=== PATIENT | female | born 1965 | race African-American/Black ===

== ENCOUNTER 2019-12-31 08:09 | Outpatient (CLI) | payer BC, SELFPAY ==
--- NOTE | ~2019-12-31 | MM_ITS ---
EXAMINATION: MM screening [facility] BI w henry HISTORY: Screening mammogram TECHNIQUE: Craniocaudal and mediolateral oblique 3-D tomosynthesis images were obtained and synthetic 2-D images were generated. CAD analysis was submitted and interpreted. COMPARISON: 08/29/2018, 08/08/2018, 06/24/2017, 06/18/2016 BREAST PARENCHYMAL COMPOSITION: There are scattered areas of fibroglandular density. FINDINGS: There is no evidence of suspicious mass, calcification, or architectural distortion to sugg est malignancy in either breast. There has been no suspicious interval change. IMPRESSION: 1. No mammographic evidence of malignancy. 2. Recommend routine screening mammography in one year. BI-RADS Category 1: Negative Reviewed, dictated and finalized at location A.
== END 2019-12-31 08:10 | disposition home or self-care (01) ==
LOC: ANHIMG 08:12
PROVIDERS: PCP Internal Medicine; Visit Provider Internal Medicine
DX: Z12.31 Encounter for screening mammogram for malignant neoplasm of breast (principal)
CPT/HCPCS: 77063; 77067

== ENCOUNTER 2021-01-07 15:45 | Outpatient (CLI) | payer BC, SELFPAY ==
--- NOTE | ~2021-01-07 | MM_ITS ---
EXAMINATION: MM screening [facility] BI w henry HISTORY: Screening TECHNIQUE: Craniocaudal and mediolateral oblique 3-D tomosynthesis images were obtained and synthetic 2-D images were generated. CAD analysis was submitted and interpreted. COMPARISON: Comparison to multiple prior studies sequentially, with oldest reviewed study dated 06/16. BREAST PARENCHYMAL COMPOSITION: There are scattered areas of fibroglandular density. FINDINGS: There is no evidence of suspicious mass, calcification, or architectural distortion to sugg est malignancy in either breast. There has been no suspicious interval change. IMPRESSION: 1. No mammographic evidence of malignancy. 2. Recommend routine screening mammography in one year. BI-RADS Category 1: Negative Reviewed, dictated and finalized at location A.
== END 2021-01-07 15:46 | disposition home or self-care (01) ==
LOC: ANHIMG 15:48
PROVIDERS: PCP Internal Medicine; Visit Provider Internal Medicine
DX: Z12.31 Encounter for screening mammogram for malignant neoplasm of breast (principal)
CPT/HCPCS: 77063; 77067

== ENCOUNTER 2021-04-20 14:27 | Outpatient (CLI) | payer BC, SELFPAY ==
--- NOTE | ~2021-04-20 | CT_ITS ---
EXAMINATION: CT abdomen pelvis w con DATE: 04/20/2021 14:56 INDICATION: Colon mass. TECHNIQUE: Computed tomography (CT) of the abdomen and pelvis was performed with 100 mL Omnipaque 350 intravenous contrast. Automated exposure control and iterative reconstruction technique were employe d. The dose-length product was 860.39 mGy-cm. COMPARISON: None. FINDINGS: The visualized portions of the lung bases demonstrate minimal atelectasis on the left. No p leural effusion. The heart size is normal. No pericardial effusion. The liver, gallbladder, spleen, p ancreas, adrenal glands, and kidneys are normal. The appendix is normal. There are no dilated loops o f bowel. There are no pathologically enlarged lymph nodes. There is no free intraperitoneal fluid. Th ere is moderate lower lumbar spondylosis. IMPRESSION: 1. No evidence of malignancy. Reviewed, dictated and finalized at location A.
== END 2021-04-20 14:28 | disposition home or self-care (01) ==
PROVIDERS: PCP Internal Medicine; Visit Provider Internal Medicine Gastroenterology
DX: K63.89 Other specified diseases of intestine (principal); Z12.11 Encounter for screening for malignant neoplasm of colon
CPT/HCPCS: 74177; Q9967

== ENCOUNTER 2021-10-28 15:58 | Outpatient (CLI) | payer BC, SELFPAY ==
--- NOTE | ~2021-10-28 | US_ITS ---
EXAMINATION: US venous doppler [facility] DATE: 10/28/2021 16:40 INDICATION: Left lower limb pain. TECHNIQUE: Grayscale ultrasound images without and with compression and Doppler ultrasound images of the left lower extremity veins were obtained. COMPARISON: None. FINDINGS: The visualized portions of left common femoral vein, profunda (deep) femoral vein, femoral vein, popl iteal vein, peroneal veins, posterior tibial veins, and greater saphenous vein outflow are patent. IMPRESSION: 1. No deep venous thrombosis. Reviewed, dictated and finalized at location A. CUSTOMIZE PAINTER
== END 2021-10-28 15:59 | disposition home or self-care (01) ==
LOC: ANHIMG 16:08
PROVIDERS: PCP Internal Medicine; Visit Provider Internal Medicine
DX: M79.605 Pain in left leg (principal)
CPT/HCPCS: 93971

== ENCOUNTER 2021-12-08 08:48 | Outpatient (CLI) | payer BC, SELFPAY ==
--- NOTE | 2021-12-08 11:30 | NEURO_ITS ---
Impression: # Complains of numbness in upper and lower extremities. # Bilateral ulnar neuropathy across the elbows. # Left peroneal distal neuropathy. # Left lower extremity peroneal and tibial amplitude drop could be related to sciatic nerve compressive neuropathy. # Clinical correlation recommended; Higher involvement needs to be ruled out. Nerve Conduction Studies Anti Sensory Summary Table Stim Site NR Peak (ms) P-T Amp (?V) Site1 Site2 Delta-P (ms) Dist (cm) Go (m/s) Left Median Anti Sensory (2-3nd Digit) Wrist 2.6 58.8 Wrist 2-3nd Digit 2.6 14.0 54 Wrist 2.6 67.9 Wrist 2-3nd Digit 2.6 14.0 54 Right Median Anti Sensory (2-3nd Digit) Wrist 2.7 84.6 Wrist 2-3nd Digit 2.7 14.0 52 Wrist 2.5 88.7 Wrist 2-3nd Digit 2.7 14.0 52 Left Radial Anti Sensory (Base 1st Digit) Wrist 1.9 30.1 Wrist Base 1st Digit 1.9 0.0 Right Radial Anti Sensory (Base 1st Digit) Wrist 2.0 19.2 Wrist Base 1st Digit 2.0 0.0 Left Sup Fibular Anti Sensory (Ant Lat Mall) 14 cm 3.5 4.9 14 cm Ant Lat Mall 3.5 16.0 46 Right Sup Fibular Anti Sensory (Ant Lat Mall) 14 cm 3.5 21.8 14 cm Ant Lat Mall 3.5 16.0 46 Left Sural Anti Sensory (Lat Mall) Calf 4.0 22.6 Calf Lat Mall 4.0 16.0 40 Right Sural Anti Sensory (Lat Mall) Calf 3.8 16.7 Calf Lat Mall 3.8 16.0 42 Left Ulnar Anti Sensory (5th Digit) Wrist 2.5 69.7 Wrist 5th Digit 2.5 14.0 56 Right Ulnar Anti Sensory (5th Digit) Wrist 2.3 42.4 Wrist 5th Digit 2.3 14.0 61 Motor Summary Table Stim Site NR Onset (ms) O-P Amp (mV) Site1 Site2 Delta-0 (ms) Dist (cm) Go (m/s) Left Median Motor (Abd Poll Brev) Wrist 2.9 5.8 Elbow Wrist 4.1 26.0 63 Elbow 7.0 5.6 Right Median Motor (Abd Poll Brev) Wrist 2.7 8.9 Elbow Wrist 4.3 25.0 58 Elbow 7.0 6.9 Left Peroneal Motor (Vastus Med) Ankle 6.5 1.3 Popit Ankle 8.3 38.0 46 Popit 14.8 1.1 Right Peroneal Motor (Vastus Med) Ankle 5.2 7.6 Popit Ankle 7.5 37.0 49 Popit 12.7 7.3 Left Tibial Motor (Abd Tan Brev) Ankle 5.1 0.8 Knee Ankle 7.9 41.0 52 Knee 13.0 0.8 Right Tibial Motor (Abd Tan Brev) Ankle 4.7 10.8 Knee Ankle 9.4 41.0 44 Knee 14.1 9.1 Left Ulnar Motor (Abd Dig Minimi) Wrist 2.3 7.5 A Elbow Wrist 6.6 30.0 45 A Elbow 8.9 6.3 B Elbow Wrist 4.0 24.0 60 B Elbow 6.3 6.6 Right Ulnar Motor (Abd Dig Minimi) Wrist 2.3 7.1 A Elbow Wrist 6.4 29.0 45 A Elbow 8.7 5.9 B Elbow Wrist 4.3 20.0 47 B Elbow 6.6 3.0 F Wave Studies NR F-Lat (ms) L-R F-Lat (ms) Left Median (Mrkrs) (Abd Poll Brev) 26.96 0.88 Right Median (Mrkrs) (Abd Poll Brev) 26.08 0.88 Left Peroneal (Mrkrs) (EDB) 55.15 2.51 Right Peroneal (Mrkrs) (EDB) 52.63 2.51 Left Tibial (Mrkrs) (Abd Hallucis) 54.69 1.83 Right Tibial (Mrkrs) (Abd Hallucis) 52.85 1.83 Left Ulnar (Mrkrs) (Abd Dig Min) 27.75 0.64 Right Ulnar (Mrkrs) (Abd Dig Min) 27.11 0.64 EMG Side Muscle Nerve Root Ins Act Fibs Amp Dur Recrt Comment Right 1stDorInt Ulnar C8-T1 Nml Nml Nml Nml Nml Right Ext Indicis Radial (Post Int) C7-8 Nml Nml Nml Nml Nml Right Ext Digitorum Radial (Post Int) C7-8 Nml Nml Nml Nml Nml Right Br
== END 2021-12-08 08:49 | disposition home or self-care (01) ==
PROVIDERS: PCP Internal Medicine; Visit Provider Internal Medicine
DX: R20.2 Paresthesia of skin (principal); G56.23 Lesion of ulnar nerve, bilateral upper limbs
CPT/HCPCS: 95886; 95913

== ENCOUNTER 2022-01-12 15:41 | Outpatient (CLI) | payer BC, SELFPAY ==
--- NOTE | ~2022-01-12 | MR_ITS ---
EXAMINATION: MR lumbar spine wo con DATE: 01/12/2022 16:25 INDICATION: Lumbar radiculopathy TECHNIQUE: Magnetic resonance imaging (MRI) of the lumbar spine was attempted. [address] installer localize r images were obtained. At this point the examination was halted FSE patient stated that her back was heating up . FINDINGS/IMPRESSION: Incomplete study. Review of localizer images demonstrates prominent lower lumbar facet osteoarthritis . Resolution is insufficient for diagnostic assessment of the lumbar spine. Limited evaluation of the remainder of the abdomen and pelvis is otherwise unremarkable. Reviewed, dictated and finalized at location A.
== END 2022-01-12 15:42 | disposition home or self-care (01) ==
LOC: ANHIMG 15:45
PROVIDERS: PCP Internal Medicine; Visit Provider Internal Medicine
DX: M54.16 Radiculopathy, lumbar region (principal)
CPT/HCPCS: 72148

== ENCOUNTER 2022-05-21 14:34 | Outpatient (CLI) | payer BC, SELFPAY ==
--- NOTE | ~2022-05-21 | MM_ITS ---
EXAMINATION: MM screening [facility] BI w henry HISTORY: Screening mammogram TECHNIQUE: Craniocaudal and mediolateral oblique 3-D tomosynthesis images were obtained and synthetic 2-D images were generated. CAD analysis was submitted and interpreted. COMPARISON: 01/07/2021, 12/31/2019 bilateral digital screening mammogram 08/29/2018 diagnostic left mammogram and limited left breast ultrasound 08/08/2018 bilateral screening mammogram BREAST PARENCHYMAL COMPOSITION: There are scattered areas of fibroglandular density. FINDINGS: There are scattered bilateral benign calcifications. There is no evidence of suspicious ma ss, calcification, or architectural distortion to suggest malignancy in either breast. There has been no suspicious interval change. IMPRESSION: 1. No mammographic evidence of malignancy. 2. Recommend routine screening mammography in one year. BI-RADS Category 1: Negative Reviewed, dictated and finalized at location B.
== END 2022-05-21 14:35 | disposition home or self-care (01) ==
LOC: ANHIMG 14:39
PROVIDERS: PCP Internal Medicine; Visit Provider Internal Medicine
DX: Z12.31 Encounter for screening mammogram for malignant neoplasm of breast (principal)
CPT/HCPCS: 77063; 77067

== ENCOUNTER 2023-07-26 09:01 | Outpatient (CLI) | payer BC, SELFPAY ==
--- NOTE | ~2023-07-26 | MM_ITS ---
EXAMINATION: MM screening [facility] BI w henry HISTORY: Screening mammogram TECHNIQUE: Craniocaudal and mediolateral oblique 3-D tomosynthesis images were obtained and synthetic 2-D images were generated. CAD analysis was submitted and interpreted. COMPARISON: 05/21/2022, 01/07/2021, 12/31/2019 BREAST PARENCHYMAL COMPOSITION:The breasts are almost entirely fatty FINDINGS: No suspicious mass, calcification, or architectural distortion are identified in either rebekah ast to suggest malignancy. There has been no suspicious interval change. IMPRESSION: No mammographic evidence of malignancy. Recommend routine screening mammography in one year. BI-RADS Category 1: Negative Reviewed, dictated and finalized at location .
== END 2023-07-26 09:02 | disposition home or self-care (01) ==
PROVIDERS: PCP Family Medicine; Visit Provider Family Medicine
DX: Z12.31 Encounter for screening mammogram for malignant neoplasm of breast (principal)
CPT/HCPCS: 77063; 77067

== ENCOUNTER 2023-11-29 08:25 | Outpatient (CLI) | payer BC, SELFPAY ==
--- NOTE | ~2023-11-29 | XR_ITS ---
EXAMINATION: XR hip BI 2V w AP pelvis DATE: 11/29/2023 08:42 INDICATION: Left hip pain. TECHNIQUE: An anteroposterior view of the pelvis and 2 views of each hip were obtained. COMPARISON: None. FINDINGS: Bone alignment is normal. No fracture. There is mild osteoarthritis of the hips. IMPRESSION: 1. Mild osteoarthritis of the hips. Reviewed, dictated and finalized at location A. ITY CONTROL TECHNICIAN
== END 2023-11-29 08:26 | disposition home or self-care (01) ==
PROVIDERS: PCP Family Medicine; Visit Provider Family Medicine
DX: M16.0 Bilateral primary osteoarthritis of hip (principal)
CPT/HCPCS: 73521

== ENCOUNTER 2024-08-15 14:23 | Outpatient (CLI) | payer BC, SELFPAY ==
--- NOTE | ~2024-08-15 | MM_ITS ---
EXAMINATION: MM screening [facility] BI w henry HISTORY: Screening TECHNIQUE: Craniocaudal and mediolateral oblique 3-D tomosynthesis images were obtained and synthetic 2-D images were generated. CAD analysis was submitted and interpreted. COMPARISON: Comparison to multiple prior studies sequentially, with oldest reviewed study dated 07/24. BREAST PARENCHYMAL COMPOSITION: Not dense: There are scattered areas of fibroglandular density. FINDINGS: There is no evidence of suspicious mass, calcification, or architectural distortion to sugg est malignancy in either breast. There has been no suspicious interval change. IMPRESSION: 1. No mammographic evidence of malignancy. 2. Recommend routine screening mammography in one year. BI-RADS Category 1: Negative Reviewed, dictated and finalized at location B.
== END 2024-08-15 14:24 | disposition home or self-care (01) ==
LOC: ANHIMG 14:24
PROVIDERS: PCP Family Medicine; Visit Provider Family Medicine
DX: Z12.31 Encounter for screening mammogram for malignant neoplasm of breast (principal)
CPT/HCPCS: 77063; 77067

== ENCOUNTER 2025-05-15 08:15 | Outpatient (CLI) | payer BC, SELFPAY ==
--- NOTE | ~2025-05-15 | XR_ITS ---
EXAM/ PROCEDURE: XR hip RT 2V w AP pelvis - 05/15/2025 8:20 CDT HISTORY: 59 years old Female with M25.559 - Pain in unspecified hip COMPARISON: None available TECHNIQUE: Three view(s) FINDINGS/ IMPRESSION: There are no fractures or dislocations.Joint space narrowing, subchondral sclerosis, subchondral cyst formation and osteophyte formation, compatible with mild osteoarthritis. Reviewed, dictated and finalized at location A.
--- OUTSIDE RECORDS SUMMARY | 2025-05-15 08:19 | XMS_ITS | Referral Summary ---
Author Organization [facility] Address [address] [place] [address] Care Team Providers Care On Site Nurse Name Role Phone Lyle Herrera MD Unavailable [phone] Cande Green MD Unavailable [phone] Kenton Talavera DO Primary Care Provider [phone] Demetrius Heredia MD Unavailable Allergies No known active allergies Medications metFORMIN XR (GLUCOPHAGE XR) 500 mg 24 hr tabletIndicatio ns:regulate blood sugar levels Take 500 mg by mouth 2 (two) times a day 04/29/2021 Active progesterone (PROMETRIUM) 200 mg capsule Take 200 mg by mouth nightly 03/18/2021 Active multivitamin capsuleIndicati ons:Vitamin Deficiency Prevention Take 1 capsule by mouth 2 (two) times a day Active cholecalciferol (VITAMIN D-3) 5,000 unit capsuleIndicati ons:Vitamin D Deficiency Take 5,000 Units by mouth every morning Active calcium carbonate-vitam in D3 500 mg(1,250mg) -400 unit chewable tablet Take 1 tablet by mouth every morning Active magnesium gluconate 200 mg tabletIndicatio ns:hypomagnesem ia,bowels Take 200 mg by mouth every morning Active omega-3 fatty acids-fish oil 300-1,000 mg capsuleIndicati ons:supplement Take 2 g by mouth 2 (two) times a day Active coenzyme Q10 100 mg capsuleIndicati ons:supplement Take 200 mg by mouth every morning Active turmeric root extract 500 mg capsuleIndicati ons:supplement Take 1 capsule by mouth every morning Active B infantis/B ani/B fish/B bifid (PROBIOTIC 4X ORAL) Take by mouth daily Active Active Problems Problem Noted Date Diagnosed Date History of colon polyps 07/02/2021 Colon polyp 05/06/2021 Overview (05/06/2021): Added automatically from request for surgery [id number] Adenomatous polyp of descending colon 04/30/2021 Resolved Problems Problem Noted Date Diagnosed Date Resolved Date Ileus 06/09/2021 06/15/2021 Social History Tobacco Use Types Packs/Day Years Used Date Smoking Tobacco: Never Smokeless Tobacco: Never AUDIT-C Answer Date Recorded Q1: How often do you have a drink containing alc ohol? 2-3 times a week 06/05/2021 Q2: How many drinks containi ng alcohol do you have on a typical day when you are drinking? 1 or 2 06/05/2021 Q3: How often do you have si x or more drinks on one occasion? 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 Gender Identity Female 05/25/2021 9:25 AM CDT Sexual Orientation Straight 05/25/2021 9: 25 AM CDT Last Filed Vital Signs Vital Sign Reading Time Taken Comments Blood Pressure 151/84 07/02/2021 2:45 PM CDT Pulse 88 07/02/2021 2:45 PM CDT Temperature 36.6 C (97.8 F) 07/02/2021 2:45 PM CDT Respiratory Rate 17 06/15/2021 7:49 AM CDT Oxygen Saturation 98% 07/02/2021 2:45 PM CDT Inhaled Oxygen Concentration - - Weight 85.3 kg (188 lb) 07/02/2021 2:45 PM CDT Height 165.1 cm (5' 5) 07/02/2021 2:45 PM CDT Body Mass Index 31.28 07/02/2021 2:45 PM CDT Plan of Treatment Not on file Procedures Procedure Name Priority Date/Time Associated Diagnosis Comments COLONOSCOPY 06/04/2021 11:04 AM CDT from Last 3 Months or Most Recently Relevant to Health Maintenance Results * COLONOSCOPY (06/04/2021 11:04 AM CDT) Anatomical Region Laterality Modality Other Narrative Procedure Note Demetrius Heredia MD - 06/04/2021 11:04 AM CDT [facility] Patient Name: Annia Ramirez Procedure Date: 06/04/2021 11:04 AM Date of : 1965 Admit Type: Outpatient Age: 55 Gender: Female Attending MD: Demetrius Heredia M.D. Room: [facility] ENDOSCOPY ROOM 02 Note Status: Finalized Procedure: Colonoscopy Indications: Therapeutic procedure for colon polyps Referring MD: Providers: Demetrius Heredia M.D. Medicines: Propofol per Anesthesia Complications: No immediate complications. Estimated blood loss: Minimal. Estimated Blood Loss: Estimated blood loss: none. Procedure: Pre-Anesthesia Assessment: - Immediately prior to administration ofmedications, the patient was re-assessed for adequacy to receive sedatives. - Sedation was administered by an anesthesia professional. General anesthesia was attained. - The heart rate, respiratory rate, oxygen saturations, blood pressure, adequacy of pulmonary ventilation, and response to care were monitored throughout the procedure. - The physical status of the patient wasre-assessed after the procedure. The benefits, risks and alternatives of theprocedure and sedation were discussed and informed consentwas obtained. All questions were answered. Please referto the signed informed consent document in the medical record. The scope was passed under direct vision.The [id number] Endoscsope was introduced through the anus and advanced to the the cecum, identifiedby appendiceal orifice and ileocecal valve. The colonoscopy was performed with ease. The patient tolerated the procedure well. The quality of thebowel preparation was excellent. The quality of the bowel preparation was evaluated using the BBPS (BostonBowel Preparation Scale) with scores of: Right Colon = 3, Transverse Colon = 3 and Left Colon = 3 (entiremucosa seen well with no residual staining, smallfragments of stool or opaque liquid). The total BBPS score equals 9. The bowel preparation used was SUPREP.Bowel prep was administered using a split dose. Findings: A 50 mm polypoid lesion was found in the mid transverse colon. The lesion was polypoid and umbilicated. No bleeding was present. Impression: - Rule out malignancy, polypoid lesion in the mid transverse colon. - No specimens collected. Recommendation: -- Proceed with surgical resection as planned. - Repeat colonoscopy in 1 year for surveillance. Electronically signed by Dr.Matthew Giovanna M.D. Demetrius Heredia M.D. 06/04/2021 11:39:11 AM . Number of Addenda: 0 Note Initiated On: 06/04/2021 11:04 AM Recognized by the [employer] for promoting quality in endoscopy Demetrius Heredia MD ENDOSCOPY PROCEDURES Final R esult from Last 3 Months or Most Recently Relevant to Health Maintenance Insurance BLUE ACCESS OOS BLUE ACCESS OOS Advance Directives For more information, please contact: [phone] * Full Code (Latest Code Status on File) Date Activated Date Inactivated Comments 06/05/2021 11:04 AM 06/07/2021 11:24 PM * Full Code Date Activated Date Inactivated Comments 06/04/2021 10:06 AM 06/04/2021 4:00 PM Care Teams On Site Nurse Relationship Specialty Start Date End Date Kenton Talavera DO [address] [address] PCP - General Internal Medicine 04/15/21 Lyle Herrera MD [address] [place] [address] Referring Physician Gastroenterology 04/15/21 Cande Green MD [address] [facility] [address] [facility] [address] [place] [address] Referring Physician Obstetrics and Gynecology 04/15/21 Demetrius Heredia MD [id number] [place] [address] Surgeon Colon and Rectal Surgery 05/06/21
--- OUTSIDE RECORDS SUMMARY | 2025-05-15 08:19 | XMS_ITS | Clinical Summary ---
Author Organization [facility] Address [address] [place] [address] Care Team Providers Care Track Layer Name Role Phone Lyle Herrera MD Unavailable [phone] Cande Green MD Unavailable [phone] Kenton Talavera DO Primary Care Provider [phone] Demetrius Heredia MD Unavailable [phone] Allergies No known active allergies Medications metFORMIN [...] (05/06/2021): Added automatically from request for surgery [id number] Adenomatous polyp of descending colon 04/30/2021 Resolved Problems Problem Noted Date Diagnosed Date Resolved Date Ileus 06/09/2021 06/15/2021 Surgical History Surgery Date Site/Laterality Comments HYSTERECTOMY 10/24/1997 - 10/23/1998 TUBAL LIGATION HYSTERECTOMY EPIDURAL BLOCK INJECTION COLON SURGERY 06/05/2021 Laparoscopic-assisted right colectomy. 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 Gender Identity Female 05/25/2021 9:25 AM CDT Sexual Orientation Straight 05/25/2021 9: 25 AM CDT Obstetrics History Last Filed Vital Signs Vital Sign Reading [...] 07/02/2021 2:45 PM CDT Plan of Treatment Health Maintenance Due Date Last Done Comments Breast Cancer Screening-Mammogram 1965 Depression Screening 1965 Hepatitis C Screening 1965 DTaP/Tdap/Td Vaccine (1 - Tdap) 12/26/1978 Hepatitis B Screening 12/26/1985 Regular Well Visit/Exam 18-64 12/26/1985 Zoster Vaccine (1 of 2) 12/26/2017 Influenza Vaccine (Season Ended) 2025 Colon Cancer Screening-Colonoscopy 06/04/20312020 Pneumococcal vaccine <65 Aged Out No longer eligible based on patient's age to complete this topic Procedures Procedure Name Priority Date/Time Associated Diagnosis Comments COLONOSCOPY 06/04/2021 11:04 AM CDT from Last 3 Months or Most Recently Relevant to Health Maintenance Results * COLONOSCOPY (06/04/2021 11:04 AM CDT) Anatomical Region Laterality Modality Other Narrative Procedure Note Demetrius Heredia MD - 06/04/2021 11:04 AM CDT [facility] Patient Name: Annia Ramirez Procedure Date: 06/04/2021 11:04 AM Date of : 1965 Admit Type: Outpatient Age: 55 Gender: Female Attending MD: Demetrius Heredia M.D. Room: [facility] ENDOSCOPY ROOM 02 Note Status: Finalized Procedure: [...] The scope was passed under direct vision.The [id number] Endoscsope was introduced through the anus and [...] On: 06/04/2021 11:04 AM Recognized by the [employer] for promoting quality in endoscopy Demetrius Heredia MD ENDOSCOPY PROCEDURES Final R esult from Last 3 Months or Most Recently Relevant to Health Maintenance Insurance [employer] OOS Advance Directives For more information, please contact: [phone] * Full Code (Latest Code Status on File) Date Activated Date Inactivated Comments 06/05/2021 11:04 AM 06/07/2021 11:24 PM * Full Code Date Activated Date Inactivated Comments 06/04/2021 10:06 AM 06/04/2021 4:00 PM Care Teams Track Layer Relationship Specialty Start Date End Date Kenton Talavera DO [address] [place] [address] PCP - General Internal Medicine 04/15/21 Lyle Herrera MD [address] [place] [address] Referring Physician Gastroenterology 04/15/21 Cande Green MD [address] [facility] [address] [place] [address] Referring Physician Obstetrics and Gynecology 04/15/21 Demetrius Heredia MD [id number] [place] [address] Surgeon Colon and Rectal Surgery 05/06/21
--- OUTSIDE RECORDS SUMMARY | 2025-05-15 08:19 | XMS_ITS | Clinical Summary ---
Author Organization [facility] [employer] Address [address] [place] [address] Care Team Providers Care Publicity Agent Name Role Phone Rodney Allen MD Primary Care Provider [phone] Source Comments [facility] [employer],non-owned Affiliates and Associated Physician Practices is amultiple site organization consisting of ambulatory clinics and hospital sitesin [place], [place], [place] and [place]. This disclosure is being madepursuant to the Care Everywhere program and may not contain all information available regarding this patient. Last updated 18.[facility] [employer] Allergies No known active allergies Medications * Be aware that medications may not be up to date on this document. Alwaysverify current medications with the patient. Turmeric Curcumin 500 MG Take 1 capsule by mouth once daily Active Progesterone 200 MG capsule Take 1 capsule by mouth once daily 06/11/2021 Active fish oil/omega-3 fatty acids (PROMEGA;CARDI- OMEGA 3) 1000 MG capsule Take 2 g by mouth 2 times daily Active multivitamins (ONE A DAY) capsule Take 1 capsule by mouth 2 times daily Active metFORMIN ER 24hr (GLUCOPHAGE XR) 500 MG tablet Take 1 tablet by mouth 2 times daily 08/07/2021 Active Magnesium 200 MG TABS Take 200 mg by mouth once daily Active coenzyme Q10 100 MG capsule Take 200 mg by mouth once daily Active vitamin D3 (CHOLECALCIFERO L) 125 MCG (5000 UT) capsule Take 5,000 Units by mouth once daily Active Calcium Carb-Cholecalci ferol 500-400 MG-UNIT Take 1 tablet by mouth once daily Active Probiotic Product (4X PROBIOTIC PO) Take 1 Each by mouth once daily Active OtherIndication s:Vital Reds Take 1 Scoop by mouth once daily Reasons: Vital Reds Active Methylsulfonylm ethane (MSM) POWD Take 3 g by mouth once daily Active Social History Tobacco Use Types Packs/Day Years Used Date Smoking Tobacco: Never Smokeless Tobacco: Never Comments Unknown Sex and Gender Information Value Date Recorded Sex Assigned at Not on file Legal Sex Female 3:30 PM CDT Gender Identity Not on file Sexual Orientation Not on file Last Filed Vital Signs Vital Sign Reading Time Taken Comments Blood Pressure 140/82 09/04/2021 12:37 PM RASPER MACHINE OPERATOR Pulse 68 09/04/2021 12:37 PM RASPER MACHINE OPERATOR Temperature 36.9 C (98.4 F) 09/04/2021 12:37 PM RASPER MACHINE OPERATOR Respiratory Rate - - Oxygen Saturation - - Inhaled Oxygen Concentration - - Weight 86.6 kg (191 lb) 09/04/2021 12:37 PM RASPER MACHINE OPERATOR Height 165.1 cm (5' 5) 09/04/2021 12:37 PM RASPER MACHINE OPERATOR Body Mass Index 31.78 09/04/2021 12:37 PM RASPER MACHINE OPERATOR Plan of Treatment Health Maintenance Due Date Last Done Comments COLOGUARD (AGES 45-75) - COL ON CA SCREENING 1967 CT COLONOGRAPHY - COLON CA SCREENING 1965 FIT - COLON CA SCREENING 1965 FLEX SIG - COLON CA SCREENING 1965 LIPID TESTING 1965 MAMMOGRAM 1965 HIV SCREENING 12/26/1982 HEPATITIS C SCREENING 12/22/1985 DTAP/TDAP/TD VACCINES (1 - Tdap) 12/26/1986 HEPATITIS B VACCINE (1 of 3 - 19+ 3-dose series) 12/26/1986 PNEUMOCOCCAL VACCINE 50+ (1 of 1 - PCV) 12/26/2017 ZOSTER VACCINE (1 of 2) 12/26/2017 SCREENING FOR DIABETES 09/04/2021 COVID-19 VACCINE (2 - 2023-2 5 season) 2024 01/21/2021 DEPRESSION SCREENING 10/24/2024 INFLUENZA VACCINE (#1) 2025 COLON MONITORING 06/04/2031 06/04/2021 COLONOSCOPY - COLON CA SCREENING 06/04/2031 06/04/20 21 Colorectal Cancer Screening 06/04/2031 HIB VACCINE Aged Out No longer eligi ble based on patient's age to complete this topic HPV VACCINE Aged Out No longer eligi ble based on patient's age to complete this topic MENINGOCOCCAL (Group B) VACC INE SHARED DECISION-MAKING Aged Out No longer eligibl e based on patient's age to complete this topic MENINGOCOCCAL GROUPS A/C/Y/W VACCINE Aged Out No longer eligible b ased on patient's age to complete this topic Insurance [facility] Care Teams Publicity Agent Relationship Specialty Start Date End Date Rodney Allen MD [address] [facility] [address] [place] [address] PCP - General 04/21/21
--- OUTSIDE RECORDS SUMMARY | 2025-05-15 08:19 | XMS_ITS | Clinical Summary ---
Author Organization [facility] Care Team Providers Care Appraiser Timber Name Role Phone Unavailable Primary Care Provider Unavailabl e Social History Tobacco Use Types Packs/Day Years Used Date Smoking Tobacco: Never Assessed Comments Unknown Sex and Gender Information Value Date Recorded Sex Assigned at Not on file Legal Sex Female 9:28 PM CDT Gender Identity Not on file Sexual Orientation Not on file Plan of Treatment Health Maintenance Due Date Last Done Comments Hepatitis C Virus (HCV) Screening 1965 TdaP Immunization 1965 Hepatitis B Immunization (1 of 3 - 19+ 3-dose series) 12/26/1986 Pap Smear 12/26/1988 Cervical Cancer Screening (CCS) 12/26/1997 HPV/Cotest 12/26/1997 Cologuard 12/26/2012 Colonoscopy 12/26/2012 Colorectal Cancer Screening 12/26/2012 Immunochemical Fecal Occult Blood 12/26/2012 Pneumococcal Immunization (5 0+ years) (1 of 1 - PCV) 12/26/2017 Zoster Immunization (1 of 2) 12/26/2017 SARS-COV-2 Immunization ( - season) 2024 09/24/2021, 01/21/2021 Influenza Immunization (#1) 2025 Respiratory Syncytial Virus (RSV) Immunization (Adult) (1 - 1-dose 75+ series) 12/26/2042 Human Papillomavirus (HPV) Immunization Aged Out No longer eligible b ased on patient's age to complete this topic Meningococcal Immunization (ACWY) Aged Out No longer eligible b ased on patient's age to complete this topic Rotavirus Immunization Aged Out No lo nger eligible based on patient's age to complete this topic
== END 2025-05-15 08:16 | disposition home or self-care (01) ==
PROVIDERS: PCP Family Medicine; Visit Provider Family Medicine
DX: M25.559 Pain in unspecified hip (principal)
CPT/HCPCS: 73502

== ENCOUNTER 2025-08-28 15:21 | Outpatient (CLI) | payer BC, SELFPAY ==
--- NOTE | ~2025-08-28 | MM_ITS ---
EXAMINATION: screening [facility] BI w henry INDICATION: Asymptomatic, referred for screening mammogram COMPARISON: 08/15/2024 through 12/31/2019 TECHNIQUE: Digital Breast Tomosynthesis CC, MLO views of Both breasts were obtained with computer-aided detection to assist in interpretation of the study. FINDINGS: There are scattered areas of fibroglandular density. There is an asymmetry seen on the MLO view in the Inferior right breast at anterior third. Elsewhere, there are no mammographic features of malignancy. IMPRESSION: 1. Right breast Asymmetry. 2. No evidence of malignancy in the Left breast. RECOMMENDATION: Right breast Diagnostic mammogram with true lateral, appropriate spot compression views and an ultrasound if needed. BI-RADS Category 0: Incomplete: Needs additional imaging evaluation. Reviewed, dictated and finalized at location B. WARE ENGINEER IMPRESSION: 1. Right breast Asymmetry. 2. No evidence of malignancy in the Left breast. RECOMMENDATION: Right breast Diagnostic mammogram with true lateral, appropriate spot compressi on views and an ultrasound if needed. BI-RADS Category 0: Incomplete: Needs additional imaging evaluation.
--- OUTSIDE RECORDS SUMMARY | 2025-08-29 14:54 | XMS_ITS | Clinical Summary ---
Author Organization [facility] Care Team Providers Care Marketing Forecaster Name Role Phone Unavailable Primary Care Provider [...] 12/26/2017 Zoster Immunization (1 of 2) 12/26/2017 Influenza Immunization (#1) 2025 SARS-COV-2 Immunization ( season) 2025 09/24/2021, 01/21/2021 Respiratory Syncytial Virus (RSV) Immunization (Adult) (1 [...]
--- OUTSIDE RECORDS SUMMARY | 2025-08-29 14:54 | XMS_ITS | Clinical Summary ---
Author Organization [facility] [email or web address] Address [address] [place] [address] Care Team Providers Care Merchandise Flow Team Leader Name Role Phone Rodney Allen MD Primary Care Provider [phone] Source Comments [facility] [email or web address],non-owned Affiliates and Associated Physician Practices is amultiple site organization consisting of ambulatory clinics and hospital sitesin [place], [place], [place] and [place]. This disclosure is being madepursuant to the Care Everywhere program and may not contain all information available regarding this patient. Last updated 18.[facility] [email or web address] Allergies No known active allergies Medications * [...] Comments Blood Pressure 140/82 09/04/2021 12:37 PM UPHOLSTERY HANDLER Pulse 68 09/04/2021 12:37 PM UPHOLSTERY HANDLER Temperature 36.9 C (98.4 F) 09/04/2021 12:37 PM UPHOLSTERY HANDLER Respiratory Rate - - Oxygen Saturation - - Inhaled Oxygen Concentration - - Weight 86.6 kg (191 lb) 09/04/2021 12:37 PM UPHOLSTERY HANDLER Height 165.1 cm (5' 5) 09/04/2021 12:37 PM UPHOLSTERY HANDLER Body Mass Index 31.78 09/04/2021 12:37 PM UPHOLSTERY HANDLER Plan of Treatment Health Maintenance Due Date [...] of 2) 12/26/2017 SCREENING FOR DIABETES 09/04/2021 DEPRESSION SCREENING 10/24/2024 COVID-19 VACCINE (2 - 2024-2 6 season) 2025 01/21/2021 INFLUENZA VACCINE (#1) 2025 COLON MONITORING 06/04/2031 [...] patient's age to complete this topic Insurance [facility] Care Teams Merchandise Flow Team Leader Relationship Specialty Start Date End Date Rodney Allen MD [address] [facility] [address] [place] [address] PCP - General 04/21/21
--- OUTSIDE RECORDS SUMMARY | 2025-08-29 14:54 | XMS_ITS | Clinical Summary ---
Author Organization [facility] Address [address] [place] [address] Care Team Providers Care Automatic Engraver Name Role Phone Lyle Herrera MD Unavailable [phone] Cande Green MD Unavailable [phone] Kenton Talavera DO Primary Care Provider [phone] Demetrius Heredia MD Unavailable [phone] Allergies No known active allergies Medications metFORMIN [...] (05/06/2021): Added automatically from request for surgery [id number] Adenomatous polyp of descending colon 04/30/2021 Resolved [...] on file Legal Sex Female 12:40 PM BEAM BUILDER Gender Identity Female 05/25/2021 9:25 AM CDT [...] Vaccine (1 of 2) 12/26/2017 Influenza Vaccine (#1) 2025 Colon Cancer Screening-Colonoscopy 06/04/20312020 Pneumococcal vaccine [...] Heredia MD - 06/04/2021 11:04 AM CDT [facility] Patient Name: Annia Ramirez Procedure Date: 06/04/2021 11:04 AM Date of : 1965 Admit Type: Outpatient Age: 55 Gender: Female Attending MD: Demetrius Heredia M.D. Room: [facility] ENDOSCOPY ROOM 02 Note Status: Finalized [...] The scope was passed under direct vision.The [id number] Endoscsope was introduced through the anus and [...] On: 06/04/2021 11:04 AM Recognized by the [place] [employer] for Gastrointestinal Endoscopy for promoting quality in endoscopy Demetrius Heredia MD ENDOSCOPY PROCEDURES Final R esult from Last 3 Months or Most Recently Relevant to Health Maintenance Insurance [employer] Advance Directives For more information, please contact: [phone] * Full Code (Latest Code Status on File) Date Activated Date Inactivated Comments 06/05/2021 11:04 AM 06/07/2021 11:24 PM * Full Code Date Activated Date Inactivated Comments 06/04/2021 10:06 AM 06/04/2021 4:00 PM Care Teams Automatic Engraver Relationship Specialty Start Date End Date Kenton Talavera DO [address] [facility] [address] [place] [address] PCP - General Internal Medicine 04/15/21 Lyle Herrera MD [address] [place] [address] Referring Physician Gastroenterology 04/15/21 Cande Green MD [address] [facility] [address] [place] [address] Referring Physician Obstetrics and Gynecology 04/15/21 Demetrius Heredia MD [phone] [place] [address] Surgeon Colon and Rectal Surgery 05/06/21
== END 2025-08-28 15:22 | disposition home or self-care (01) ==
LOC: ANHFOHIMG 15:23
PROVIDERS: PCP Family Medicine; Visit Provider Obstetrics & Gynecology
DX: Z12.31 Encounter for screening mammogram for malignant neoplasm of breast (principal); R92.8 Other abnormal and inconclusive findings on diagnostic imaging of breast
CPT/HCPCS: 77063; 77067

== ENCOUNTER 2025-09-05 16:03 | Outpatient (CLI) | payer BC, SELFPAY ==
--- NOTE | ~2025-09-05 | MR_ITS ---
EXAMINATION: MR lumbar spine wo con DATE: 09/05/2025 16:33 INDICATION: Low back pain TECHNIQUE: Magnetic resonance imaging (MRI) of the lumbar spine was performed without intravenous contrast. Sequences included sagittal T2-weighted FSE, sagittal T2-weighted FS FSE, sagittal T1-weighted FSE, and axial T2-weighted FSE. COMPARISON: 03/28/2023 FINDINGS: 2-3 mm anterolisthesis L4 on L5. 3 mm retrolisthesis L5 on S1. Vertebral body heights are normal. Normal marrow signal. Mild disc height loss at L3-L4, mild to moderate disc height loss at L4-L5 and moderate disc height loss at L5-S1. There are annular fissures at both L4-L5 and L5-S1. The conus medullaris terminates at T12-L1. There is normal signal in the caudal spinal cord. Paravertebral soft tissues are unremarkable. The following disc levels are specifically discussed: T12-L1: The disc does not extend beyond the endplate margin. There is mild right and moderate left facet joint osteoarthritis. There is no neural foraminal stenosis. There is no central canal stenosis. L1-L2: The disc does not extend beyond the endplate margin. There is mild to moderate right and severe left facet joint osteoarthritis. There is no neural foraminal stenosis. There is no central canal stenosis. L2-L3: The disc does not extend beyond the endplate margin. There is mild right and moderate to severe left facet joint osteoarthritis. There is mild bilateral neural foraminal stenosis. There is no central canal stenosis. L3-L4: Disc is bulging. There is severe bilateral facet joint osteoarthritis. There is mild bilateral neural foraminal stenosis. There is mild central canal stenosis. L4-L5: Disc is bulging. There is severe bilateral facet joint osteoarthritis. 6 mm synovial cyst at the posterolateral margin of the left facet joint. There is mild right and mild to moderate left neural foraminal stenosis. There is mild central canal stenosis. L5-S1: Disc is bulging. There is mild to moderate bilateral facet joint osteoarthritis. There is moderate bilateral neural foraminal stenosis. There is no central canal stenosis. IMPRESSION: 1. Mild interval progression of mild to moderate lower lumbar predominant spondylosis. Reviewed, dictated and finalized at location A. T SERVICES AGENT IMPRESSION: 1. Mild interval progression of mild to moderate lower lumbar predominant spond ylosis.
--- OUTSIDE RECORDS SUMMARY | 2025-09-05 16:07 | XMS_ITS | Clinical Summary ---
Author Organization [facility] Care Team Providers Care Professional Fee Coder Name Role Phone Unavailable Primary Care Provider [...]
--- OUTSIDE RECORDS SUMMARY | 2025-09-05 16:07 | XMS_ITS | Clinical Summary ---
Author Organization [facility] Address [address] [place] [address] Care Team Providers Care Air Brake Adjuster Name Role Phone Lyle Herrera MD Unavailable [phone] Cande Green MD Unavailable [phone] Kenton Talavera DO Primary Care Provider [phone] Demetrius Heredia MD Unavailable [phone] Allergies No known active allergies Medications metFORMIN [...] (05/06/2021): Added automatically from request for surgery [id number] Adenomatous polyp of descending colon 04/30/2021 Resolved [...] on file Legal Sex Female 12:40 PM CHARGE ENTRY Gender Identity Female 05/25/2021 9:25 AM CDT [...] Heredia MD - 06/04/2021 11:04 AM CDT [facility] Patient Name: Annia Ramirez Procedure Date: 06/04/2021 11:04 AM Date of : 1965 Admit Type: Outpatient Age: 55 Gender: Female Attending MD: Demetrius Heredia M.D. Room: [facility] ENDOSCOPY ROOM 02 Note Status: [...] The scope was passed under direct vision.The [id number] Endoscsope was introduced through the anus and [...] On: 06/04/2021 11:04 AM Recognized by the [place] Society for Gastrointestinal Endoscopy for promoting quality in endoscopy Demetrius Heredia MD ENDOSCOPY PROCEDURES Final R esult from Last 3 Months or Most Recently Relevant to Health Maintenance Insurance [employer] Advance Directives For more information, please contact: [phone] * Full Code (Latest Code Status on File) Date Activated Date Inactivated Comments 06/05/2021 11:04 AM 06/07/2021 11:24 PM * Full Code Date Activated Date Inactivated Comments 06/04/2021 10:06 AM 06/04/2021 4:00 PM Care Teams Air Brake Adjuster Relationship Specialty Start Date End Date Kenton Talavera DO [address] [facility] [address] [place] [address] PCP - General Internal Medicine 04/15/21 Lyle Herrera MD [address] [place] [address] Referring Physician Gastroenterology 04/15/21 Cande Green MD [address] [facility] [address] [place] [address] Referring Physician Obstetrics and Gynecology 04/15/21 Demetrius Heredia MD [phone] [place] [address] Surgeon Colon and Rectal Surgery 05/06/21
--- OUTSIDE RECORDS SUMMARY | 2025-09-05 16:07 | XMS_ITS | Clinical Summary ---
Author Organization [facility] [employer] Address [address] [place] [address] Care Team Providers Care Diamond Die Driller Name Role Phone Rodney Allen MD Primary Care Provider [phone] Source Comments [facility] [employer],non-owned Affiliates and Associated Physician Practices is amultiple site organization consisting of ambulatory clinics and hospital sitesin [place], [place], [place] and [place]. This disclosure is being madepursuant to the Care Everywhere program and may not contain all information available regarding this patient. Last updated 18.[facility] [employer] Allergies No known active allergies Medications * [...] Comments Blood Pressure 140/82 09/04/2021 12:37 PM PLASTIC MIXER Pulse 68 09/04/2021 12:37 PM PLASTIC MIXER Temperature 36.9 C (98.4 F) 09/04/2021 12:37 PM PLASTIC MIXER Respiratory Rate - - Oxygen Saturation - - Inhaled Oxygen Concentration - - Weight 86.6 kg (191 lb) 09/04/2021 12:37 PM PLASTIC MIXER Height 165.1 cm (5' 5) 09/04/2021 12:37 PM PLASTIC MIXER Body Mass Index 31.78 09/04/2021 12:37 PM PLASTIC MIXER Plan of Treatment Health Maintenance Due Date [...] patient's age to complete this topic Insurance [facility] Care Teams Diamond Die Driller Relationship Specialty Start Date End Date Rodney Allen MD [address] [facility] [address] [place] [address] PCP - General 04/21/21
== END 2025-09-05 16:04 | disposition home or self-care (01) ==
PROVIDERS: PCP Family Medicine; Visit Provider Nurse Practitioner Family
DX: M54.51 Vertebrogenic low back pain (principal); M79.18 Myalgia, other site; M79.605 Pain in left leg; M47.26 Other spondylosis with radiculopathy, lumbar region
CPT/HCPCS: 72148

== ENCOUNTER 2025-10-03 08:33 | Outpatient (CLI) | payer BC, SELFPAY ==
--- NOTE | ~2025-10-03 | MMUS_ITS ---
EXAMINATION: US breast RT limited, MM diagnostic moise RT w henry HISTORY: Additional imaging TECHNIQUE: Craniocaudal and mediolateral oblique 3-D tomosynthesis images were obtained and synthetic 2-D images were generated. CAD analysis was submitted and interpreted. Grayscale sonography over the area(s) of interest with color Doppler if there is a finding. COMPARISON: August 28 BREAST PARENCHYMAL COMPOSITION: Not Dense: There are scattered areas of fibroglandular MAMMOGRAM FINDINGS: A very small, circumscribed mass persists in the approximately 8:00 retroareolar region. There are no suspicious calcifications. No unexplained architectural distortion is seen. There are no skin or nipple abnormalities identified. There is no adenopathy seen on the images submitted. ULTRASOUND FINDINGS: Sonography through the area of mammographic nodule demonstrates a 3 mm circumscribed hypoechoic mass containing low level echoes, likely secondary to small size. It is oval with parallel orientation. This is considered likely to be benign. IMPRESSION: Small, probably benign nodule for which six-month follow-up right mammogram and right breast ultrasound are recommended. BI-RADS 3 - Probably benign - short-term follow-up is recommended. Reviewed, dictated and finalized at location C. RVISOR FABRICATION AND ASSEMBLY IMPRESSION: Small, probably benign nodule for which six-month follow-up right mammogram and right breast ultrasound are recommended. BI-RADS 3 - Probably benign - short-term follow-up is recommended.
== END 2025-10-03 08:34 | disposition home or self-care (01) ==
LOC: MICIMG 08:33
PROVIDERS: PCP Family Medicine; Visit Provider Family Medicine
DX: N64.89 Other specified disorders of breast (principal)
CPT/HCPCS: 76642; 77061; 77065; G0279